=== PATIENT | male | born 1995 | race Caucasian/White ===

== ENCOUNTER 2018-06-21 20:07 | Emergency (ER) | payer BC, OTHER ==
[2018-06-21] MEDS: KETOROLAC TROMETHAMINE 10 MG TAB PO (22:31)
== END 2018-06-21 22:35 | disposition home or self-care (01) ==
LOC: M ED 20:07
DX: S60.221A Contusion of right hand, initial encounter (principal); W22.09XA Striking against other stationary object, initial encounter; Y92.009 Unspecified place in unspecified non-institutional (private) residence as the place of occurrence of the external cause; F17.210 Nicotine dependence, cigarettes, uncomplicated; Z87.81 Personal history of (healed) traumatic fracture
CPT/HCPCS: 73130

== ENCOUNTER 2018-07-12 18:10 | Emergency (ER) | payer BC ==
[2018-07-12] MEDS: AUGMENTIN 875 MG TAB PO (20:06)
[2018-07-12] MEDS: IBUPROFEN 800 MG TAB PO (20:06)
== END 2018-07-12 20:10 | disposition home or self-care (01) ==
LOC: M ED 18:10
DX: J02.0 Streptococcal pharyngitis (principal); F17.210 Nicotine dependence, cigarettes, uncomplicated; Z79.1 Long term (current) use of non-steroidal anti-inflammatories (NSAID)
CPT/HCPCS: 87880

== ENCOUNTER 2018-10-11 12:11 | Emergency (ER) | payer BC | END 2018-10-11 12:53 | disposition home or self-care (01) | LOC: M ED 12:11 | DX: H66.93 Otitis media, unspecified, bilateral (principal); Q87.1 Congenital malformation syndromes predominantly associated with short stature | CPT/HCPCS: 99282 ==

== ENCOUNTER → 2024-12-21 | Outpatient (REF) | payer OTHER ==
[~2024-12-21] MED LIST: AMOX500C PO; AUGM875T28 PO; NAPR-885 PO
[2024-12-21 15:32] LABS: HEMATOCRIT 40.9 % (42.0-52.0); HEMOGLOBIN 14.4 g/dl (13.5-17.5); MEAN CORPUSCULAR HEMOGLOBIN 29.6 pg (27.0-33.0); MEAN CORPUSCULAR HGB CONC 35.2 g/dl (32.0-36.5); MEAN CORPUSCULAR VOLUME 84.2 fl (80.0-96.0); PLATELET COUNT, AUTOMATED 165 10^3/uL (150-450); RED BLOOD COUNT 4.86 10^6/uL (4.30-6.10); WHITE BLOOD COUNT 3.6 10^3/uL (4.0-10.0)
[2024-12-21 15:56] LABS: THYROID STIMULATING HORMONE 2.689 uIU/ML (0.55-4.78)
[2024-12-21 15:57] LABS: ALBUMIN 4.1 G/DL (3.2-5.2); ALKALINE PHOSPHATASE 68 U/L (40-129); ALT/SGPT 18 U/L (7.0-40); AST/SGOT 19 U/L (<34); BILIRUBIN,TOTAL 0.3 MG/DL (0.3-1.2); BLOOD UREA NITROGEN 14 MG/DL (9-23); CALCIUM LEVEL 9.2 MG/DL (8.5-10.1); CARBON DIOXIDE LEVEL 30 MMOL/L (20-31); CHLORIDE LEVEL 105 MMOL/L (98-107); CHOLESTEROL LEVEL 115 MG/DL (<200); CHOLESTEROL RISK RATIO 4.29 (<5); CREATININE FOR GFR 0.82 MG/DL (0.70-1.30); GLOMERULAR FILTRATION RATE > 60.0 (>60); GLUCOSE, FASTING 132 MG/DL (60-100); HDL CHOLESTEROL 26.8 MG/DL (>40); LDL CHOLESTEROL 72.2 MG/DL (<100); NON-HDL-C 88.2 MG/DL; POTASSIUM SERUM 4.1 MMOL/L (3.5-5.1); SODIUM LEVEL 143 MMOL/L (136-145); TOTAL PROTEIN 7.3 G/DL (5.7-8.2); TRIGLYCERIDES LEVEL 80 MG/DL (<150)
== END ==
LOC: M LAB REF 12:54
PROVIDERS: ATTEND Student in an Organized Health Care Education/Training Program
DX: Z00.00 Encounter for general adult medical examination without abnormal findings (principal)

== ENCOUNTER → 2025-06-13 | Outpatient (CLI) | payer OTHER | LOC: M OUTALCOH 14:54 | PROVIDERS: ATTEND Psychiatry & Neurology Psychiatry | DX: F12.20 Cannabis dependence, uncomplicated (principal); F16.20 Hallucinogen dependence, uncomplicated; F17.200 Nicotine dependence, unspecified, uncomplicated ==

== ENCOUNTER 2025-07-12 14:53 | Outpatient (RCR) | payer OTHER | END 2025-07-14 | LOC: M OUTALCOH 14:53 | PROVIDERS: ATTEND Psychiatry & Neurology Psychiatry | DX: F10.10 Alcohol abuse, uncomplicated (principal); F12.20 Cannabis dependence, uncomplicated; F17.200 Nicotine dependence, unspecified, uncomplicated; F16.20 Hallucinogen dependence, uncomplicated | CPT/HCPCS: G0397 ×2 ==

== ENCOUNTER → 2025-08-13 | Outpatient (RCR) | payer OTHER | LOC: M OUTALCOH 07-16 16:00 | PROVIDERS: ATTEND Psychiatry & Neurology Psychiatry | DX: F10.10 Alcohol abuse, uncomplicated (principal); F12.20 Cannabis dependence, uncomplicated; F17.200 Nicotine dependence, unspecified, uncomplicated; F16.20 Hallucinogen dependence, uncomplicated ==

== ENCOUNTER 2025-09-11 14:59 | Outpatient (RCR) | payer OTHER, SELFPAY | END 2025-09-13 | LOC: M OUTALCOH 14:59 | PROVIDERS: ATTEND Psychiatry & Neurology Psychiatry | DX: F10.10 Alcohol abuse, uncomplicated (principal); F12.20 Cannabis dependence, uncomplicated; F17.200 Nicotine dependence, unspecified, uncomplicated; F16.20 Hallucinogen dependence, uncomplicated ==

== ENCOUNTER 2025-10-09 16:00 | Outpatient (RCR) | payer SELFPAY | END 2025-10-13 | LOC: M OUTALCOH 16:00 | PROVIDERS: ATTEND Psychiatry & Neurology Psychiatry | DX: F12.20 Cannabis dependence, uncomplicated (principal); F10.10 Alcohol abuse, uncomplicated; F17.200 Nicotine dependence, unspecified, uncomplicated; F16.20 Hallucinogen dependence, uncomplicated ==

== ENCOUNTER 2025-11-11 08:52 | Outpatient (RCR) | payer SELFPAY | END 2025-11-13 | LOC: M OUTALCOH 08:52 | PROVIDERS: ATTEND Psychiatry & Neurology Psychiatry | DX: F12.20 Cannabis dependence, uncomplicated (principal); F10.10 Alcohol abuse, uncomplicated; F17.200 Nicotine dependence, unspecified, uncomplicated; F16.20 Hallucinogen dependence, uncomplicated ==